=== PATIENT | male | born 1990 | race Caucasian/White ===

== ENCOUNTER 2016-11-06 22:28 | Emergency (ER) | payer BC ==
--- NOTE | 2016-11-06 23:51 | DIAGNOSTIC IMAGING REPORT ---
PROCEDURE: XR HAND 3 OR 4 VIEWS - RIGHT INDICATION: TRAUMA/INJURY TECHNIQUE: Four views of the right hand. COMPARISON: 12/15/2014 FINDINGS: Normal mineralization. No acute fractures. Remote deformity of the impacted, angulated, healed fifth metacarpal diaphyseal fracture. Normal osseous alignment. No suspicious soft-tissue calcification or radiodense foreign bodies. Tarsal soft tissue swelling over the metacarpal heads. IMPRESSION: 1. Intact right hand. 2. Soft tissue swelling. 3. Remote fifth metacarpal fracture.
--- NOTE | 2016-11-06 23:55 | ED ORDER SUMMARY ---
..... Patient: LEXUS QUIJANO OrderSheet [facility] VisitID: [id number] [place] [address] 25y, M Registration Date/Time: 11/06/2016 ORDER SHEET Weight: 104.3 kg (stated) Allergies: No Known Drug Allergy GENERAL ORDERS: Hand 3 or 4V Right Urgent (23:08 11/06/2016 Sharita Prasad) (Ack 23:15 Magan R.N.) (23:47 Faustino) MEDICATION ORDERS: Percocet PO 5/325 mg (HIGH ALERT MEDICATION, NOW) (23:09 11/06/2016 Sharita Prasad) (Ack 23:15 Magan Baker.N.) (23:18 Magan R.N.) Morphine IM 8 mg (once now) (23:55 11/06/2016 Sharita Prasad) (Ack 0:06 Magan Baker.NIsela) (0:13 Magan Baker.N.) IV FLUIDS: ORDER SHEET NOTES: [Electronically signed by Benoit Ramirez R.N. (00:15 11/07/2016)] [Electronically signed by Angus Ferguson Dr. (05:30 11/08/2016)] [Electronically locked/signed by Benoit Ramirez R.N. (00:15 11/07/2016)]
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
--- NOTE | 2016-11-06 23:55 | ED CLINICAL REPORT ---
Clinical Report - Physicians/Mid Levels [facility] [address] [place] [address] 11/06/2016 22:29 Patient: LEXUS QUIJANO Time Seen: 2301. Arrived- By private vehicle. Historian- patient. HISTORY OF PRESENT ILLNESS Chief Complaint: Injury to the right hand. The injury happened just prior to arrival today. Occurred at home. ( punched door). Patient is experiencing moderate pain. Patient denies injury to the head or neck. No other injury. REVIEW OF SYSTEMS The patient has had swelling. No tingling, numbness, weakness or foreign body. All systems otherwise negative, except as recorded above. PAST HISTORY See nurses notes. Tetanus immunization status is up-to-date. Medications: None. Allergies: No Known Drug Allergy. SOCIAL HISTORY No drug use. ADDITIONAL NOTES The nursing notes have been reviewed. PHYSICAL EXAM Vital Signs: 11/06/2016 23:04 BP: 156/93. HR: 89. RR: 14. O2 saturation: 100%. Temp: 98.4 F. Pain level now: 9/10. Blood pressure normal. Oxygen saturation normal. Appearance: Alert. Oriented X3. No acute distress. Head: Head atraumatic. Neck: Normal inspection. Neck supple. C-spine non-tender. CVS: Normal heart rate and rhythm. Heart sounds normal. Pulses normal. Respiratory: No respiratory distress. Breath sounds normal. Chest nontender. Abdomen: No visible injury. Soft and nontender. Bowel sounds normal. Skin: Skin warm and dry. Skin intact. Extremities: (Mild swelling over thedistal metacarpals of the right hand at the third and fourth digit. Mild abrasions over the knuckle. No puncture wounds. Skin is otherwise intact. No other overlying skin changes. No crepitus. No snuffbox tenderness. Patient has full range of motion and all the major joints of the hand. Compartments are soft. No other bony other maladies.). Neuro, Vascular and Tendons: Vascular status intact. Sensation intact. Motor intact. Tendon function intact. CLINICAL IMPRESSION 11/06/2016 23:04 BP: 156/93. HR: 89. RR: 14. O2 saturation: 100%. Temp: 98.4 F. Pain level now: 910. Hypertensive. Oxygen saturation normal. Single contusion to the right hand. Essential hypertension. Multiple superficial abrasions to the right hand. INSTRUCTIONS Warnings: GENERAL WARNINGS: Return or contact your physician immediately if your condition worsens or changes unexpectedly, if not improving as expected, or if other problems arise. Specifically return if pain, vomiting, bleeding, breathing difficulty or fever. Your Current Medications: CONTINUE TAKING THE FOLLOWING MEDICATIONS: None*. OTC Medications: Acetaminophen (available over the counter): take according to label instructions. Motrin (available over the counter): take according to label instructions. Follow-up: Return to the emergency department as needed. Follow up with your doctor in three days. Reason for referral: recheck today's concerns. Summary of care provided to patient via paper. Screening today revealed the patient's blood pressure to be in the normal range. The patient should follow up with a primary care provider for blood pressure management. Understanding of the discharge instructions verbalized by patient. (Electronically signed by Angus Ferguson Dr. 11/08/2016 5:30)
--- NOTE | 2016-11-06 23:55 | ED ORDER SUMMARY ---
..... Patient: LEXUS QUIJANO OrderSheet [facility] VisitID: [id number] [place] [address] 25y, M Registration Date/Time: 11/06/2016 ORDER SHEET Weight: 104.3 kg (stated) Allergies: No Known Drug Allergy GENERAL ORDERS: Hand 3 or 4V Right Urgent (23:08 11/06/2016 Sharita Prasad) (Ack 23:15 Magan R.N.) (23:47 Faustino) MEDICATION ORDERS: Percocet PO 5/325 mg (HIGH ALERT MEDICATION, NOW) (23:09 11/06/2016 Sharita Prasad) (Ack 23:15 Magan Baker.N.) (23:18 Magan R.N.) Morphine IM 8 mg (once now) (23:55 11/06/2016 Sharita Prasad) (Ack 0:06 Magan Baker.NIsela) (0:13 Magan Baker.N.) IV FLUIDS: ORDER SHEET NOTES: [Electronically signed by Benoit Ramirez R.N. (00:15 11/07/2016)] [Electronically signed by Angus Ferguson Dr. (05:30 11/08/2016)] [Electronically locked/signed by Benoit Ramirez R.N. (00:15 11/07/2016)]
--- NOTE | 2016-11-06 23:55 | ED CLINICAL REPORT ---
Clinical Report - Physicians/Mid Levels [facility] [address] [place] [address] 11/06/2016 22:29 Patient: LEXUS QUIJANO Time Seen: 2301. Arrived- By private vehicle. Historian- patient. HISTORY OF PRESENT ILLNESS Chief Complaint: Injury to the right hand. The injury happened just prior to arrival today. Occurred at home. ( punched door). Patient is experiencing moderate pain. Patient denies injury to the head or neck. No other injury. REVIEW OF SYSTEMS The patient has had swelling. No tingling, numbness, weakness or foreign body. All systems otherwise negative, except as recorded above. PAST HISTORY See nurses notes. Tetanus immunization status is up-to-date. Medications: None. Allergies: No Known Drug Allergy. SOCIAL HISTORY No drug use. ADDITIONAL NOTES The nursing notes have been reviewed. PHYSICAL EXAM Vital Signs: 11/06/2016 23:04 BP: 156/93. HR: 89. RR: 14. O2 saturation: 100%. Temp: 98.4 F. Pain level now: 9/10. Blood pressure normal. Oxygen saturation normal. Appearance: Alert. Oriented X3. No acute distress. Head: Head atraumatic. Neck: Normal inspection. Neck supple. C-spine non-tender. CVS: Normal heart rate and rhythm. Heart sounds normal. Pulses normal. Respiratory: No respiratory distress. Breath sounds normal. Chest nontender. Abdomen: No visible injury. Soft and nontender. Bowel sounds normal. Skin: Skin warm and dry. Skin intact. Extremities: (Mild swelling over thedistal metacarpals of the right hand at the third and fourth digit. Mild abrasions over the knuckle. No puncture wounds. Skin is otherwise intact. No other overlying skin changes. No crepitus. No snuffbox tenderness. Patient has full range of motion and all the major joints of the hand. Compartments are soft. No other bony other maladies.). Neuro, Vascular and Tendons: Vascular status intact. Sensation intact. Motor intact. Tendon function intact. CLINICAL IMPRESSION 11/06/2016 23:04 BP: 156/93. HR: 89. RR: 14. O2 saturation: 100%. Temp: 98.4 F. Pain level now: 910. Hypertensive. Oxygen saturation normal. Single contusion to the right hand. Essential hypertension. Multiple superficial abrasions to the right hand. INSTRUCTIONS Warnings: GENERAL WARNINGS: Return or contact your physician immediately if your condition worsens or changes unexpectedly, if not improving as expected, or if other problems arise. Specifically return if pain, vomiting, bleeding, breathing difficulty or fever. Your Current Medications: CONTINUE TAKING THE FOLLOWING MEDICATIONS: None*. OTC Medications: Acetaminophen (available over the counter): take according to label instructions. Motrin (available over the counter): take according to label instructions. Follow-up: Return to the emergency department as needed. Follow up with your doctor in three days. Reason for referral: recheck today's concerns. Summary of care provided to patient via paper. Screening today revealed the patient's blood pressure to be in the normal range. The patient should follow up with a primary care provider for blood pressure management. Understanding of the discharge instructions verbalized by patient. (Electronically signed by Angus Ferguson Dr. 11/08/2016 5:30)
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
--- NOTE | 2016-11-08 05:30 | ED MED RECONCILIATION SUMMARY ---
Patient: LEXUS QUIJANO Medication Reconciliation Report [facility] VisitID: [id number] [place] [address] 25y, M Registration Date/Time: 11/06/2016 Weight: 104.3 kg Height/Length: 70 in. BMI: 33.0 ALLERGIES: No Known Drug Allergy The patient's Home Medications are listed below: NONE. The source(s) of the original Home Medication information: patient The following Medications were given to the patient in the Emergency Department: Percocet [PO] PO 1 tab, administered: 11/06/2016 11:18:00 PM Morphine [IM] IM 8 mg, administered: 11/07/2016 12:08:00 AM The following Medications were prescribed to the patient: Acetaminophen (available over the counter): take according to label instructions. -- Angus Ferguson Dr. Motrin (available over the counter): take according to label instructions. -- Angus Ferguson Dr.
--- NOTE | 2016-11-08 05:30 | ED DISCHARGE INSTRUCTIONS ---
Patient: LEXUS QUIJANO General Instructions [facility] VisitID: [id number] [place] [address] 25y, M Registration Date/Time: 11/06/2016 11/06/2016 23:04 BP: 156/93. HR: 89. RR: 14. O2 saturation: 100%. Temp: 98.4 F. Pain level now: 910. Hypertensive. Oxygen saturation normal. Single contusion to the right hand. Essential hypertension. Multiple superficial abrasions to the right hand. INSTRUCTIONS Warnings: GENERAL WARNINGS: Return or contact your physician immediately if your condition worsens or changes unexpectedly, if not improving as expected, or if other problems arise. Specifically return if pain, vomiting, bleeding, breathing difficulty or fever. Your Current Medications: CONTINUE TAKING THE FOLLOWING MEDICATIONS: None*. OTC Medications: Acetaminophen (available over the counter): take according to label instructions. Motrin (available over the counter): take according to label instructions. Follow-up: Return to the emergency department as needed. Follow up with your doctor in three days. Reason for referral: recheck today's concerns. Summary of care provided to patient via paper. Screening today revealed the patient's blood pressure to be in the normal range. The patient should follow up with a primary care provider for blood pressure management. Understanding of the discharge instructions verbalized by patient. ADDITIONAL INFORMATION Contusion: Hand You have a CONTUSION of your hand. This causes local pain, swelling and sometimes bruising. There are no broken bones. This injury takes from a few days to a few weeks to heal. Home Care: 1) Keep your arm elevated to reduce pain and swelling. This is very important during the first 48 hours. 2) Apply an ice pack (ice cubes in a plastic bag, wrapped in a towel) over the injured area for 20 minutes every 1-2 hours the first day. You should continue with ice packs 3-4 times a day for the next two days. Continue the use of ice packs for relief of pain and swelling as needed. 3) You may use acetaminophen (Tylenol) or ibuprofen (Motrin, Advil) to control pain, unless another pain medicine was prescribed. [ NOTE : If you have chronic liver or kidney disease or ever had a stomach ulcer or GI bleeding, talk with your doctor before using these medicines.] Follow Up with your doctor or this facility if you are not starting to improve within the next THREE days. [NOTE: If X-rays were taken, they will be reviewed by a radiologist. You will be notified of any new findings that may affect your care.] Get Prompt Medical Attention if any of the following occur: -- Pain or swelling increases -- Redness, warmth or drainage -- Hand or fingers becomes cold, blue, numb or tingly High Blood Pressure -- To Be Confirmed [No Tx] Your blood pressure was higher today than normal. Sometimes anxiety or pain can cause a temporary rise in blood pressure that later returns to normal. If your blood pressure is high on one measurement, this does not mean that you have hypertension (a chronic illness). However, you must have your blood pressure measured again within the next few days to find out if its still high. A normal blood pressure is 120/80 or less. The first (top) number is the "systolic" pressure. The second (bottom) number is the "diastolic" pressure. Hypertension exists when either the top number is 140 or higher, OR the bottom number is 90 or higher on repeated measurements. Blood pressure in the range of 120-140 (systolic) or 80-89 (diastolic) is considered "pre-hypertension". This means your are at risk for getting hypertension. You should have regular blood pressure checks to be sure your blood pressure is not rising. Home Care: Measure your blood pressure on 3 different days and write down the results. This can be done at your doctor's office or this facility. Some pharmacies and grocery stores offer automated blood pressure machines for your use. Follow Up: If your blood pressure is "high" (over 120/80) on 2 out of 3 days, you will need to follow up with your doctor for further evaluation and treatment. DO NOT PUT THIS OFF! Untreated high blood pressure increases the risk for heart attack, also known as acute myocardial infarction, or AMI, and stroke. It is a treatable condition. Get Prompt Medical Attention if any of the following occur: Chest pain or shortness of breath Severe headache Throbbing or rushing sound in the ears Nosebleed Sudden severe abdominal pain Extreme drowsiness, confusion or fainting Dizziness or vertigo (dizziness with spinning sensation) Weakness of an arm or leg or one side of the face Difficulty with speech or vision You have been given the following additional information: Contusion, Hand Hypertension, To Be Confirmed (Electronically signed by Angus Ferguson Dr. 11/08/2016 5:30)
--- NOTE | 2016-11-08 05:30 | ED MAR SUMMARY ---
..... Medication Administration Record [facility] [address] [place] [address] Patient: LEXUS QUIJANO Visit ID: [id number] 25y, M Weight: 104.3 kg Height/Length: 70 in BMI: 33 ALLERGIES: No Known Drug Allergy Given 23:18 11/06/2016 Benoit Ramirez R.N. Medication Administered: PERCOCET [PO] (OXYCODONE-ACETAMINOPHEN), Dose: 1 tab Tablets PO. Medication Ordered: Percocet PO 5/325 mg (HIGH ALERT MEDICATION, NOW). Given 00:08 11/07/2016 Benoit Ramirez R.NIsela Medication Administered: MORPHINE [IM] (MORPHINE SULFATE (PF)), Dose: 8 mg IM. Medication Ordered: Morphine IM 8 mg (once now).
--- NOTE | 2016-11-08 05:30 | ED MED RECONCILIATION SUMMARY ---
Patient: LEXUS QUIJANO Medication Reconciliation Report [facility] VisitID: [id number] [place] [address] 25y, M Registration Date/Time: 11/06/2016 Weight: 104.3 kg Height/Length: 70 in. BMI: 33.0 ALLERGIES: No Known Drug Allergy The patient's Home Medications are listed below: NONE. The source(s) of the original Home Medication information: patient The following Medications were given to the patient in the Emergency Department: Percocet [PO] PO 1 tab, administered: 11/06/2016 11:18:00 PM Morphine [IM] IM 8 mg, administered: 11/07/2016 12:08:00 AM The following Medications were prescribed to the patient: Acetaminophen (available over the counter): take according to label instructions. -- Angus Ferguson Dr. Motrin (available over the counter): take according to label instructions. -- Angus Ferguson Dr.
--- NOTE | 2016-11-08 05:30 | ED MAR SUMMARY ---
..... Medication Administration Record [facility] [address] [place] [address] Patient: LEXUS QUIJANO Visit ID: [id number] 25y, M Weight: 104.3 kg Height/Length: 70 in BMI: 33 ALLERGIES: No Known Drug Allergy Given 23:18 11/06/2016 Benoit Ramirez R.N. Medication Administered: PERCOCET [PO] (OXYCODONE-ACETAMINOPHEN), Dose: 1 tab Tablets PO. Medication Ordered: Percocet PO 5/325 mg (HIGH ALERT MEDICATION, NOW). Given 00:08 11/07/2016 Benoit Ramirez R.NIsela Medication Administered: MORPHINE [IM] (MORPHINE SULFATE (PF)), Dose: 8 mg IM. Medication Ordered: Morphine IM 8 mg (once now).
== END 2016-11-07 00:14 | disposition home or self-care (01) ==
LOC: ED SRH 22:28
DX: S60.221A Contusion of right hand, initial encounter (principal); S60.511A Abrasion of right hand, initial encounter; W22.8XXA Striking against or struck by other objects, initial encounter; Y93.9 Activity, unspecified; Y92.019 Unspecified place in single-family (private) house as the place of occurrence of the external cause; Y99.9 Unspecified external cause status; I10 Essential (primary) hypertension; F17.210 Nicotine dependence, cigarettes, uncomplicated